=== PATIENT | female | born 1995 ===

== ENCOUNTER 2022-01-27 08:57 | Outpatient (CLI) | payer OTHER | END 2022-01-27 10:00 | disposition home or self-care (01) | LOC: PRENATAL 08:57 | PROVIDERS: ATTEND Obstetrics & Gynecology Maternal & Fetal Medicine | DX: O35.0XX0 Maternal care for (suspected) central nervous system malformation in fetus, not applicable or unspecified (principal); Z3A.22 22 weeks gestation of pregnancy ==

== ENCOUNTER 2022-02-22 07:41 | Outpatient (CLI) | payer OTHER | END 2022-02-22 09:15 | disposition home or self-care (01) | LOC: PRENATAL 07:41 | PROVIDERS: ATTEND Obstetrics & Gynecology Maternal & Fetal Medicine | DX: O35.0XX0 Maternal care for (suspected) central nervous system malformation in fetus, not applicable or unspecified (principal); O35.3XX0 Maternal care for (suspected) damage to fetus from viral disease in mother, not applicable or unspecified; Z14.8 Genetic carrier of other disease; Z3A.26 26 weeks gestation of pregnancy ==